=== PATIENT | female | born 1960 | race Asian ===

== ENCOUNTER 2016-04-29 08:08 | Inpatient (IN) | payer OTHER ==
[~2016-04-29] VITALS: Ht 157.5 cm; Wt 65.2 kg
[2016-04-29] MEDS ORDERED: morphine 4 MG/ML VIAL IV STA (08:24)
[2016-04-29] MEDS ORDERED: ASPIRIN 81 MG TAB PO STA (08:24)
[2016-04-29] MEDS ORDERED: ONDANSETRON 4 MG INJ IV STA (08:24)
[2016-04-29] MEDS ORDERED: NITROGLYCERIN 2% 1 GM OINT PKT TD STA (08:24)
--- NOTE | 2016-04-29 08:31 | ERA ---
ER Documentation Chief Complaint Date/Time DATE: 04/29/16 TIME: 08:28 Chief Complaint shortness of breath, chest pain - hx of chest palpitation HPI Patient is a 56-year-old female who reports intermittent chest pain with shortness of breath and nausea over the last week. Her daughter states that they went to [place] emergency department and allegedly were told to come here if she had any further symptoms. She reports increased chest pain this morning upon awakening with shortness of breath and nausea so she came here for further evaluation. They do not know at this time what is causing the symptoms. The daughter states that she gets short of breath with ambulating and with talking. This is improved when she is at rest. The chest pain seems to come and go on its own. She has not had any fever, rhinorrhea, sore throat, or otalgia. She has had a dry nonproductive cough. She denies any edema of her extremities. And she is not traveling long distances. Denies any abdominal pain, vomiting, diarrhea, dysuria, hematuria, flank pain or back pain. In the remainder of the systems are negative ROS All systems reviewed and are negative except as per history of present illness. Medications Home Meds Reported Medications Aspirin* (Aspirin*) 325 Mg Tablet, 325 MG PO DAILY, TAB 04/29/16 Losartan Potassium* (Losartan Potassium*) 50 Mg Tablet, 50 MG PO BID, TAB 04/29/16 Allergies Allergies: Coded Allergies: No Known Allergy (Unverified , 04/29/16) PMhx/Soc Medical and Surgical Hx: pt denies Surgical Hx Hx Alcohol Use: No Hx Substance Use: No Smoking Status: Never smoker FmHx Family History: No diabetes Physical Exam Vitals Vital Signs Date Time Temp Pulse Resp B/P Pulse Ox O2 Delivery O2 Flow Rate FiO2 04/29/16 08:33 Nasal Cannula 2 04/29/16 08:13 98.2 85 19 182/80 100 Physical Exam Const: [] Well-developed well-nourished female sitting on the bed no acute distress Head: Atraumatic normocephalic Eyes: Normal Conjunctiva ENT: Normal External Ears, Nose and Mouth. Neck: Full range of motion..~ No meningismus. Resp: Clear to auscultation bilaterally, no tenderness to palpation of the chest wall Cardio: Regular rate and rhythm, no murmurs Abd: Soft, non tender, non distended. Normal bowel sounds no masses, rebound , or guarding Skin: No petechiae or rashes Back: No midline or flank tenderness Ext: No cyanosis, or edema, no calf pain Neur: Awake and alert, GCS of 15, nonfocal, moves all extremities equally Psych: Normal Mood and Affect Result Diagram: 04/29/16 0730 04/29/16 0730 Results 24 hrs Laboratory Tests Test 04/29/16 07:30 Activated Partial Thromboplast Time 31.6Sec Alanine Aminotransferase (ALT/SGPT) 24IU/L Albumin 4.4g/dl Albumin/Globulin Ratio 1.22 Alkaline Phosphatase 76IU/L Anion Gap 18 Aspartate Amino Transf (AST/SGOT) 22IU/L B-Type Natriuretic Peptide 17PG/ML Basophils # 0.010^3/ul Basophils % 0.5% Blood Urea Nitrogen 14mg/dl Calcium Level 10.8mg/dl Carbon Dioxide Level 26mmol/L Chloride Level 104mmol/L Creatinine 0.62mg/dl Direct Bilirubin 0.00mg/dl Eosinophils # 0.110^3/ul Eosinophils % 0.9% Globulin 3.60g/dl Glucose Level 140mg/dl Hematocrit 39.1% Hemoglobin 13.6g/dl INR International Normalized Ratio 0.93 Indirect Bilirubin 0.3mg/dl Lymphocytes # 1.910^3/ul Lymphocytes % 33.5% Mean Corpuscular Hemoglobin 30.6pg Mean Corpuscular Hemoglobin Concent 34.8g/dl Mean Corpuscular Volume 87.9fl Mean Platelet Volume 9.1fl Monocytes # 0.410^3/ul Monocytes % 7.2% Neutrophils # 3.210^3/ul Neutrophils % 57.7% Nucleated Red Blood Cells # 0.010^3/ul Nucleated Red Blood Cells % 0.0/100WBC Platelet Count 27769^3/UL Potassium Level 3.8mmol/L Prothrombin Time 12.5Sec Prothrombin Time Ratio 1.0 Red Blood Count 4.4510^6/ul Red Cell Distribution Width 12.7% Sodium Level 144mmol/L Total Bilirubin 0.3mg/dl Total Protein 8.0g/dl Troponin I < 0.012ng/ml White Blood Count 5.610^3/ul Current Medications Medications (Trade) Dose Ordered Sig/Argenis Route PRN Reason Start Time Stop Time Status Last Admin Dose Admin Aspirin (Aspirin) 162 mg ONCE STAT PO 04/29/16 08:24 04/29/16 08:26 DC 04/29/16 08:44 Nitroglycerin (Nitroglycerin 2% Oint) 1 inch ONCE STAT TD 04/29/16 08:24 04/29/16 08:26 DC 04/29/16 08:45 Morphine Sulfate (morphine) 4 mg ONCE STAT IV 04/29/16 08:24 04/29/16 08:26 DC 04/29/16 08:45 Ondansetron HCl (Zofran Inj) 4 mg ONCE STAT IV 04/29/16 08:24 04/29/16 08:27 DC 04/29/16 08:44 Procedures/MDM Differential includes but is not limited to new onset angina, congestive heart failure, chest pain of unclear etiology, dyspnea, bronchitis, pneumonia EKG: Rate/Rhythm: Normal Sinus Rhythm at 70 bpm without any evidence for acute ischemia, no old EKG available for comparison QRS, ST, T-waves: No changes consistent w/ acute ischemia Impression: No evidence of ischemia or arrhythmia Chest x-ray reveals calcification of the thoracic aorta consistent with atherosclerosis, no acute cardio pulmonary process noted per the radiologist 0 9:29 AM: At this time patient's chest pain is improved. Her blood pressure is also improved. Her cardiac enzymes are negative. Her history however is concerning for possible new onset angina. Given the fact that her pain was worse this morning I feel is most prudent to admit her to the hospital for further evaluation. Departure Diagnosis: Primary Impression: Chest pain Qualified Code: R07.2 - Precordial pain Additional Impressions: Exertional shortness of breath Hypertension Qualified Code: I10 - Essential hypertension Condition: AMBER [place] Apr 29, 2016 08:31
[2016-04-29 08:36] LABS: ADD SCAN DIFF NO
[2016-04-29 08:39] LABS: BASOPHILS % 0.5 % (0.0-2.0); EOSINOPHILS # 0.1 10^3/ul (0.0-0.5); EOSINOPHILS % 0.9 % (0.0-7.0); HEMATOCRIT 39.1 % (37.0-47.0); HEMOGLOBIN 13.6 g/dl (12.0-16.0); LYMPHOCYTES # 1.9 10^3/ul (0.8-2.9); LYMPHOCYTES % 33.5 % (15.0-51.0); MEAN CORPUSCULAR HEMOGLOBIN 30.6 pg (29.0-33.0); MEAN CORPUSCULAR HGB CONC 34.8 g/dl (32.0-37.0); MEAN CORPUSCULAR VOLUME 87.9 fl (82.0-101.0); MEAN PLATELET VOLUME 9.1 fl (7.4-10.4); MONOCYTE # 0.4 10^3/ul (0.3-0.9); MONOCYTES % 7.2 % (0.0-11.0); NEUTROPHIL # 3.2 10^3/ul (1.6-7.5); NEUTROPHILS % 57.7 % (39.0-77.0); PLATELET COUNT 278 10^3/UL (140-415); RED BLOOD COUNT 4.45 10^6/ul (4.20-5.40); RED CELL DISTRIBUTION WIDTH 12.7 % (11.5-14.5); WHITE BLOOD COUNT 5.6 10^3/ul (4.8-10.8)
[2016-04-29 08:46] LABS: ALBUMIN 4.4 g/dl (3.3-4.9); CHLORIDE 104 mmol/L (97-110); POTASSIUM 3.8 mmol/L (3.5-5.1); SODIUM 144 mmol/L (135-144)
[2016-04-29 08:48] LABS: CREATININE 0.62 mg/dl (0.44-1.00)
[2016-04-29 08:49] LABS: ALANINE AMINOTRANSFERASE 24 IU/L (13-69); ALBUMIN/GLOBULIN RATIO 1.22; ALKALINE PHOSPHATASE 76 IU/L (42-121); ANION GAP 18 (8-16); ASPARTATE AMINO TRANSFERASE 22 IU/L (15-46); BILIRUBIN,INDIRECT 0.3 mg/dl (0-1.1); BILIRUBIN,TOTAL 0.3 mg/dl (0.2-1.3); BLOOD UREA NITROGEN 14 mg/dl (7-20); CALCIUM 10.8 mg/dl (8.4-10.2); CARBON DIOXIDE 26 mmol/L (21-31); GLUCOSE 140 mg/dl (70-220)
[2016-04-29 08:58] LABS: B-TYPE NATRIURETIC PEPTIDE 17 PG/ML (0-125)
[2016-04-29 09:01] LABS: INR 0.93; PARTIAL THROMBOPLASTIN TIME 31.6 Sec (25.0-35.0); PROTIME 12.5 Sec (12.2-14.2)
--- NOTE | 2016-04-29 09:03 | RADRPT ---
PROCEDURE: XR Chest. CLINICAL INDICATION: Chest pain TECHNIQUE: Chest AP portable COMPARISON: None available FINDINGS: The mediastinal structures are unremarkable. There is calcification of the thoracic aorta (consiste nt with atherosclerosis). The heart is normal in size and configuration. The pulmonary vascularity is normal. The lung rooney are unremarkable. No consolidation is identified. The pleural spaces are unremarkable. The osseous structures are unremarkable. IMPRESSION: Calcification of the thoracic aorta (consistent with atherosclerosis). No evidence for active cardiopulmonary disease. RPTAT: HGDB .Nader Boggs MD, Date Time Electronically viewed and signed by .Nader Boggs MD, on 04/29/2016 09:02 .B/
[2016-04-29 09:04] LABS: TROPONIN-I < 0.012 ng/ml (0.00-0.12)
[2016-04-29] MEDS ORDERED: ASPI325T4 PO (09:26)
[2016-04-29] MEDS ORDERED: LOSA50TA6 PO (09:26)
[2016-04-29] MEDS ORDERED: VER40 PO (09:30)
[2016-04-29] MEDS ORDERED: ACETAMINOPHEN 325 MG TAB PO PRN (10:00)
[2016-04-29] MEDS ORDERED: ONDANSETRON 4 MG INJ IV PRN (10:00)
[2016-04-29 13:14] VITALS: BP 147/81; RESP 22
[2016-04-29 13:17] VITALS: PULSE 51
[2016-04-29 14:10] VITALS: Ht 157.5 cm; Wt 65.2 kg
[2016-04-29] MEDS ORDERED: morphine 2 MG INJ IV PRN (15:00)
[2016-04-29] MEDS ORDERED: NITROGLYCERIN (SL) 0.4 MG TAB SL PRN (15:00)
[2016-04-29 15:53] LABS: CREATINE KINASE < 20 IU/L (23-200)
[2016-04-29 16:00] VITALS: PULSE 53
[2016-04-29 16:13] LABS: CK-MB < 0.22 ng/ml (0.0-2.4); TROPONIN-I < 0.012 ng/ml (0.00-0.12)
[2016-04-29 16:36] VITALS: BP 123/80; RESP 19
--- NOTE | 2016-04-29 17:23 | CONS ---
Date/Time of Note Date/Time of Note DATE: 04/29/16 TIME: 17:18 Assessment/Plan Assessment/Plan Additional Assessment/Plan Chest pain Shortness of breath Hypertension -Patient with intermittent symptoms going on for a number of months, sometimes associated with activity, sometimes not. Serial cardiac enzymes have remained negative, ECG without any significant ischemic abnormalities. Will check echocardiogram, would consider nuclear cardiac perfusion workup. Continue on telemetry monitoring. Consultation Date/Type/Reason Admit Date/Time Apr 29, 2016 at 09:42 Type of Consultation: cv Reason for Consultation Chest pain and shortness of breath Hx of Present Illness This is a 56-year-old female with past medical history of hypertension who presents with worsening shortness of breath and chest pain. Symptoms have been going on for many months. She recently moved here from the [facility] 3 months ago. At times, patient with exertional shortness of breath which improves at rest. At times shortness of breath in the morning with waking up and also with speaking. She also has frequent palpitations which comes and goes with and without activity. At times she gets lightheaded. She also complains of intermittent chest discomfort. Chest pain is not always associated with activity. It comes and goes throughout the day. This morning, patient with worsening symptoms so she came to the emergency room for evaluation and care. Patient states she has gone to other hospitals for further workup but secondary to insurance reasons, was sent to our facility. She currently denies any chest pain, shortness of breath. 12 point review of systems was performed with all pertinent positives and negatives mentioned above and all else is negative Past Medical History Medical History: hypertension Past Surgical History Past Surgical Hx: no surgical history Family History Significant Family History: no pertinent family hx Social History Alcohol Use: none Smoking Status: Never smoker Drug Use: none Other Social History Patient recently moved here from the [facility] 3 months ago Exam/Review of Systems Vital Signs Vitals Vital Signs Date Time Temp Pulse Resp B/P Pulse Ox O2 Delivery O2 Flow Rate FiO2 04/29/16 16:36 97.7 55 19 123/80 99 04/29/16 14:10 Nasal Cannula 2.0 Exam No apparent distress, eating dinner in chair, daughter in the room and translating Constitutional: alert, oriented, well developed Head: normocephalic Neck: supple Respiratory: clear to auscultation, normal air movement Cardiovascular: other (S1-S2 heard), regular rate and rhythm Gastrointestinal: bowel sounds, non-tender, other (No guarding), soft Extremities: other (No edema or cyanosis) Results Result Diagram: 04/29/16 0730 04/29/16 0730 Results 24 hrs Laboratory Tests Test 04/29/16 07:30 04/29/16 15:05 Activated Partial Thromboplast Time 31.6 Alanine Aminotransferase (ALT/SGPT) 24 Albumin 4.4 Albumin/Globulin Ratio 1.22 Alkaline Phosphatase 76 Anion Gap 18 H Aspartate Amino Transf (AST/SGOT) 22 B-Type Natriuretic Peptide 17 Basophils # 0.0 Basophils % 0.5 Blood Urea Nitrogen 14 Calcium Level 10.8 H Carbon Dioxide Level 26 Chloride Level 104 Creatinine 0.62 Direct Bilirubin 0.00 Eosinophils # 0.1 Eosinophils % 0.9 Globulin 3.60 H Glucose Level 140 Hematocrit 39.1 Hemoglobin 13.6 INR International Normalized Ratio 0.93 Indirect Bilirubin 0.3 Lymphocytes # 1.9 Lymphocytes % 33.5 Mean Corpuscular Hemoglobin 30.6 Mean Corpuscular Hemoglobin Concent 34.8 Mean Corpuscular Volume 87.9 Mean Platelet Volume 9.1 Monocytes # 0.4 Monocytes % 7.2 Neutrophils # 3.2 Neutrophils % 57.7 Nucleated Red Blood Cells # 0.0 Nucleated Red Blood Cells % 0.0 Platelet Count 278 Potassium Level 3.8 Prothrombin Time 12.5 Prothrombin Time Ratio 1.0 Red Blood Count 4.45 Red Cell Distribution Width 12.7 Sodium Level 144 Total Bilirubin 0.3 Total Protein 8.0 Troponin I < 0.012 < 0.012 White Blood Count 5.6 Creatine Kinase < 20 L Creatine Kinase Index Creatinine Kinase MB (Mass) < 0.22 Medications Medications Current Medications Aspirin (Aspirin) 81 mg DAILY PO ; Start 04/30/16 at 09:00 Nitroglycerin (Nitroglycerin (Sl Tab) 0.4 Mg) 1 tab Q5M PRN SL ANGINA; Start at 15:00 Morphine Sulfate (morphine) 2 mg Q4H PRN IV PAIN; Start 04/29/16 at 15:00 Procedures Procedures ECG demonstrates sinus rhythm, normal QRS duration, no significant ischemic STT wave abnormalities Olvin Mccloud DO Apr 29, 2016 17:23
[2016-04-29 20:00] VITALS: BP 149/72; PULSE 59
[2016-04-29 20:21] VITALS: PULSE 58
[2016-04-29 21:03] LABS: CREATINE KINASE < 20 IU/L (23-200)
[2016-04-29 21:25] LABS: CK-MB < 0.22 ng/ml (0.0-2.4); TROPONIN-I < 0.012 ng/ml (0.00-0.12)
--- NOTE | 2016-04-29 22:22 | QN ---
Documentation Comment [id number] VICTORIA MAHER MD Apr 29, 2016 22:22
[2016-04-29 22:54] LABS: CHOL/HDL RATIO 7.5 RATIO
[2016-04-30] VITALS (11 sets, daily range): BP systolic 118–147; BP diastolic 68–86; PULSE 50–69; RESP 16–20
--- NOTE | 2016-04-30 07:18 | HP ---
DATE OF ADMISSION: 04/29/2016 HISTORY OF PRESENT ILLNESS: The patient with a history of hypertension. Presented with complaints of chest pain and short of breath, and is being admitted for further management. The patient's blood pressure in the ER 123/80 _ and the patient's . The patient's troponin is negative. Calcium 10.8 and sodium 144. The patient had a chest x-ray shows thoracic aorta. PAST MEDICAL HISTORY: Hypertension. ALLERGIES: NEGATIVE. FAMILY HISTORY: Noncontributory. SOCIAL HISTORY: Negative. MEDICATIONS AT HOME: 1. Aspirin. 2. Losartan. 3. Verapamil. REVIEW OF SYSTEMS: HEENT: Unremarkable. RESPIRATORY: Unremarkable. CARDIOVASCULAR SYSTEM: As mentioned. ABDOMEN: Unremarkable. EXTREMITIES: Unremarkable. . PHYSICAL EXAMINATION: GENERAL: The patient is awake. VITAL SIGNS: Stable. HEENT: Head is atraumatic, normocephalic. Pupils appear equal. react.. NECK: Supple. No LUNGS: Clear. CARDIOVASCULAR: S1, S2 is normal. ABDOMEN: Soft, nontender, bowel sounds with no palpable mass or hepatosplenomegaly. EXTREMITIES: No cyanosis, clubbing, or edema. NEUROLOGIC: The patient is awake, alert and no focal deficit. LABORATORY DATA: As mentioned above. IMPRESSION: 1. Acute coronary syndrome. 2. Hypertension with ischemic heart disease, database. PLAN: 1. Review EKG. 2. Cardiology consultation. 3. Will continue home medications. 4. Troponin will be sent. 5. Lipid panel . Dictated By: VICTORIA MAHER MD BS/NTS Conf#: [id number] DID#: [id number]
[2016-04-30] MEDS: ASPIRIN 81 MG TAB PO SCH (08:04)
[2016-04-30] MEDS ORDERED: REGADENOSON 0.4 MG/5 ML SYG ONE (10:01)
--- NOTE | 2016-04-30 12:08 | CONS ---
Date/Time of Note Date/Time of Note DATE: 04/30/16 TIME: 12:07 Assessment/Plan Assessment/Plan Additional Assessment/Plan Chest pain Shortness of breath Hypertension -Patient feeling better today. Serial cardiac enzymes remain negative. Plan for echocardiogram and nuclear stress test today. Blood pressure on the higher end, would start lisinopril. Consultation Date/Type/Reason Admit Date/Time Apr 29, 2016 at 09:42 Initial Consult Date Type of Consultation: cv 24 HR Interval Summary Free Text/Dictation Patient feeling better today. Denies shortness of breath, chest pain Exam/Review of Systems Vital Signs Vitals Vital Signs Date Time Temp Pulse Resp B/P Pulse Ox O2 Delivery O2 Flow Rate FiO2 04/30/16 12:02 69 04/30/16 11:54 97.4 19 136/80 99 04/30/16 08:00 Nasal Cannula 2.0 Intake and Output 04/29/16 04/29/16 04/30/16 15:00 23:00 07:00 Intake Total 200 ml 0 ml Balance 200 ml 0 ml Exam No apparent distress Constitutional: alert, oriented Head: normocephalic Neck: supple Respiratory: clear to auscultation, normal air movement Cardiovascular: other (S1-S2 heard), regular rate and rhythm Gastrointestinal: bowel sounds, non-tender, other (No guarding), soft Extremities: other (No edema or cyanosis) Results Result Diagram: 04/29/16 0730 04/29/16 0730 Results 24 hrs Laboratory Tests Test 04/29/16 15:05 04/29/16 20:25 Creatine Kinase < 20 L < 20 L Creatine Kinase Index Creatinine Kinase MB (Mass) < 0.22 < 0.22 Troponin I < 0.012 < 0.012 Triglycerides Level 186 H Cholesterol Level 243 H LDL Cholesterol, Calculated 174 HDL Cholesterol 32 L Cholesterol/HDL Ratio 7.5 Medications Medications Current Medications Aspirin (Aspirin) 81 mg DAILY PO Last administered on 04/30/16 08:04; Admin Dose 81 MG; Start 04/30/16 at 09:00 Nitroglycerin (Nitroglycerin (Sl Tab) 0.4 Mg) 1 tab Q5M PRN SL ANGINA; Start at 15:00 Morphine Sulfate (morphine) 2 mg Q4H PRN IV PAIN Last administered on 22:52; Admin Dose 2 MG; Start 04/29/16 at 15:00 Olvin Mccloud DO Apr 30, 2016 12:08
--- NOTE | 2016-04-30 13:01 | RADRPT ---
PROCEDURE: Lexiscan myocardial perfusion study CLINICAL INDICATION: 56 -year-old patient complaining of chest pain. TECHNIQUE: Lexiscan 0.4 mg intravenously separate acquisition gated myocardial perfusion SPECT usi ng Tc 99m Myoview 31.3 mCi intravenously at stress and Tc-99m Myoview, 10.0 mCi intravenously at res t was performed using the rest/stress sequence. Poststress Myoview SPECT images were obtained in th e supine position. COMPARISON: No prior studies. FINDINGS: Perfusion images reveal no evidence of perfusion defects. Lexiscan post stress gated SPECT images demonstrate no wall motion abnormalities. IMPRESSION: 1. No evidence of perfusion defects. 2. No wall motion abnormalities. 3. The left ventricle ejection fraction at stress is 70%. A call report was made to Dr. Mccloud at 12:59 p.m. on April 30, 2016. RPTAT: HH .Alessandra Guzman MD, Date Time Electronically viewed and signed by .Alessandra Guzman MD, on 04/30/2016 13:00 .L/
[2016-04-30] MEDS: LISINOPRIL 5 MG TAB PO SCH (13:55)
--- NOTE | 2016-04-30 17:31 | RADRPT ---
Echocardiogram Report Patient Name: CARLOS PHOENIX Gender: Female Date: 1960 Study Date: 30-Apr-2016 Straightening Machine Operator: Lamont Arreguin [facility] Location: 5539 Ref. Physician: OLVIN MCCLOUD Quality: Good Procedures: Transthoracic echocardiogram with complete 2D, M-Mode, and doppler examination. Indications: Chest Pain. Shortness of breath. 2D/M Mode Doppler Measurement Value Normal Ranges Measurement Value Normal Ranges LVIDd 2D 3.8 3.5 - 5.6 cm AV Peak Jr 1.1 m/sec LVIDs 2D 2.4 2.1 - 4.1 cm AV Peak PG 4.5 mmHg LVPWd 2D 0.9 0.6 - 1.1 cm LVOT Peak Jr 0.9 m/sec IVSd 2D 1.1 0.6 - 1.1 cm LVOT Peak PG 3.2 mmHg AoR Diam 2D 2.7 2.0 - 3.7 cm MV E Peak Jr 0.7 m/sec EDV 2D 62.1 cm3 MV A Peak Jr 0.8 m/sec ESV 2D 14.1 cm3 MV E/A 0.9 LA Dimen 2D 3.0 2.3 - 4.0 cm MV Decel Time 146 msec MV Decel [place] 5 MV E/A 0.9 Findings Left Ventricle: Normal left ventricular systolic function. Normal left ventricular cavity size. Normal left ventricular wall thickness. Ejection fraction is visually estimated at 65 %. Tissue Doppler/Mitral Doppler indices are consistent with impaired relaxation (Stage I diastolic dysfunction). Right Ventricle: Normal right ventricular size. Normal right ventricular systolic function. Left Atrium: The left atrium is normal in size. Right Atrium: The right atrium is normal in size. Mitral Valve: Normal appearance and function of the mitral valve with trace physiologic regurgitation. Aortic Valve: Normal appearance of the aortic valve. No significant aortic stenosis or insufficiency. Tricuspid Valve: Normal appearance and function of the tricuspid valve with trace physiologic regurgitation. Pulmonic Valve: Normal pulmonic valve appearance. Pericardium: Normal pericardium with no significant pericardial effusion. Aorta: Normal aortic root. IVC: Normal size and normal respiratory collapse consistent with normal right atrial pressure. Conclusions 1.Normal left ventricular systolic function. Normal left ventricular cavity size. Normal left ventricular wall thickness. Ejection fraction is visually estimated at 65 %. Tissue Doppler/Mitral Doppler indices are consistent with impaired relaxation (Stage I diastolic dysfunction). 2.Normal right ventricular size. Normal right ventricular systolic function. 3.The left atrium is normal in size. 4.The right atrium is normal in size. 5.No significant valvular stenosis or regurgitation seen. 6.Normal pericardium with no significant pericardial effusion. Electronically Signed By: Olvin Mccloud 30-Apr-2016 17:30:33 -0700 Patient Name: CARLOS PHOENIX Study Date: 30-Apr-2016 [id number]
--- NOTE | 2016-04-30 23:51 | PN ---
Date/Time of Note Date/Time of Note DATE: 04/30/16 TIME: 23:51 Assessment/Plan VTE Prophylaxis VTE Prophylaxis Intervention: other Lines/Catheters [facility] Saline Lock Urinary Cath still in place: No Assessment/Plan Chief Complaint/Hosp Course mi r/o dyslipedemia plan per cardio Problems: Subjective 24 Hr Interval Summary Cardiovascular: no complaints Gastrointestinal: no complaints Exam/Review of Systems Vital Signs Vitals Vital Signs Date Time Temp Pulse Resp B/P Pulse Ox O2 Delivery O2 Flow Rate FiO2 04/30/16 21:30 Nasal Cannula 2.0 04/30/16 20:40 66 04/30/16 19:52 98.1 16 126/86 100 Intake and Output 04/29/16 04/29/16 04/30/16 15:00 23:00 07:00 Intake Total 200 ml 0 ml Balance 200 ml 0 ml Exam Neck: supple Respiratory: clear to auscultation Cardiovascular: regular rate and rhythm Gastrointestinal: soft Results Result Diagram: 04/29/16 0730 04/29/16 0730 Medications Medications Current Medications Aspirin (Aspirin) 81 mg DAILY PO Last administered on 04/30/16 08:04; Admin Dose 81 MG; Start 04/30/16 at 09:00 Nitroglycerin (Nitroglycerin (Sl Tab) 0.4 Mg) 1 tab Q5M PRN SL ANGINA; Start at 15:00 Morphine Sulfate (morphine) 2 mg Q4H PRN IV PAIN Last administered on 22:52; Admin Dose 2 MG; Start 04/29/16 at 15:00 Lisinopril (Zestril) 5 mg DAILY PO Last administered on 04/30/16 13:55; Admin Dose 5 MG; Start 04/30/16 at 12:30 VICTORIA MAHER MD Apr 30, 2016 23:51
[2016-05-01] VITALS (8 sets, daily range): BP systolic 106–126; BP diastolic 60–75; PULSE 49–60; RESP 16–20
[2016-05-01] MEDS: ASPIRIN 81 MG TAB PO SCH (08:57)
[2016-05-01] MEDS: LISINOPRIL 5 MG TAB PO SCH (09:00)
--- NOTE | 2016-05-01 12:34 | PDOCDIS ---
Discharge Instructions CONDITION Patient Condition: Good HOME CARE INSTRUCTIONS: Diet Instructions: 2gm NaSpecial Diet: Cardiac diet ACTIVITY: Activity Restrictions: Slowly Increase Activity FOLLOW UP/APPOINTMENTS Appointments f/u own pcp [address] camargo 1 wk VICTORIA MAHER MD May 01, 2016 12:33
[2016-05-01] MEDS ORDERED: ATOR40TA68 PO (12:38)
[2016-05-01] MEDS ORDERED: NIT4 SL (12:38)
--- NOTE | 2016-05-01 13:53 | CARRPT ---
DATE OF PROCEDURE: LEXISCAN NUCLEAR STRESS TEST PATIENT HISTORY: This 56-year-old female who presents with recurrent dyspnea on exertion and chest pain. Baseline ECG demonstrates sinus bradycardia at 57 beats per minute, no significant ischemic ST-T wav e abnormalities. Baseline heart rate was 57. Baseline blood pressure was 188/88. Lexiscan was administered as per protocol. SYMPTOMS: Shortness of breath which resolved. Peak heart rate was 96. Peak blood pressure was 188/96. ARRHYTHMIAS: None. ECG interpretation was nonischemic. The nuclear portion will be interpreted by our radiology colleagues. Dictated By: SUGEY GUO/AYNI Conf#: [id number] DID#: [id number]
[2016-05-01] MEDS ORDERED: ATORVASTATIN 40 MG TAB PO SCH (21:00)
== END 2016-05-01 14:00 | disposition home or self-care (01) | DRG 313 ==
LOC: E/R 08:08 → MS4 09:42
PROVIDERS: ADMIT Internal Medicine Nephrology; ATTEND Internal Medicine Nephrology
DX: R07.9 Chest pain, unspecified (principal); I10 Essential (primary) hypertension; E78.5 Hyperlipidemia, unspecified; R06.02 Shortness of breath; Z79.82 Long term (current) use of aspirin
CPT/HCPCS: 36415; 71010; 78452; 80053; 80061; 82550; 82553; 83880; 84484; 85025; 85610; 85730; 93005; 93017; 93306; 96374; 96375; A9500; A9505; J2270; J2405; J2785

== ENCOUNTER 2017-01-03 22:14 | Emergency (ER) | payer OTHER ==
[~2017-01-03] VITALS: Ht 157.5 cm; Wt 66.3 kg
[~2017-01-03 22:14] MED LIST: ASPI325T4 PO; ATOR40TA68 PO; LOSA50TA6 PO; NIT4 SL; VER40 PO
[2017-01-03 22:31] VITALS: Ht 157.5 cm; Wt 66.3 kg
--- NOTE | 2017-01-03 22:51 | ERD ---
ER Documentation Chief Complaint Chief Complaint palpitations this AM, takes Verapamil HPI 56-year-old woman presents with 3-4 days of intermittent palpitations. She denies chest pain or chest discomfort but has palpitations intermittently lasting for most of the day, her daughter who is at the bedside states she has had these symptoms multiple times in the past but they both deny history of atrial fibrillation or atrial flutter. Patient denies shortness of breath, no calf or leg swelling, no fevers or chills, no cough, no headache or blurry vision. Patient states she has been using her other medications as prescribed. ROS All systems reviewed and are negative except as per history of present illness. Medications Home Meds Active Scripts Atorvastatin* (Atorvastatin*) 40 Mg Tablet, 40 MG PO HS for 28 Days, TAB Prov:VICTORIA MAHER MD 05/01/16 Nitroglycerin* (Nitrostat*) 0.4 Mg Tab.subl, 1 TAB SL Q5M Y for ANGINA for 14 Days Prov:VICTORIA MAHER MD 05/01/16 Reported Medications Verapamil Hcl* (Isoptin*) 40 Mg Tab, 40 MG PO Q6 Y for PALPITATION, TAB 04/29/16 Aspirin* (Aspirin*) 325 Mg Tablet, 325 MG PO DAILY, TAB 04/29/16 Losartan Potassium* (Losartan Potassium*) 50 Mg Tablet, 50 MG PO BID, TAB 04/29/16 Allergies Allergies: Coded Allergies: No Known Allergy (Unverified , 04/29/16) PMhx/Soc Hypertension, dyslipidemia, CAD History of Surgery: Yes Anesthesia Reaction: No Hx Neurological Disorder: No Hx Respiratory Disorders: No Hx Cardiac Disorders: Yes (HTN) Hx Psychiatric Problems: No Hx Miscellaneous Medical Probl: No Hx Alcohol Use: No Hx Substance Use: No Hx Tobacco Use: No FmHx Family History: No diabetes Physical Exam Vitals Vital Signs Date Time Temp Pulse Resp B/P Pulse Ox O2 Delivery O2 Flow Rate FiO2 01/04/17 00:45 98.1 69 18 114/81 99 Room Air 01/03/17 22:45 69 18 169/102 99 Room Air 01/03/17 22:31 98.0 41 22 95 Physical Exam GENERAL: Well-developed, well-nourished, well-hydrated, in no apparent distress , looks nontoxic in appearance HEENT: Moist mucous membranes, pink conjunctiva, no cervical spine tenderness or step-off deformities, no goiter, no jaundice or icterus, extraocular movements intact without pain. No submandibular induration, and no pharyngeal erythema NEURO: Alert and oriented 3, cranial nerves II through XII intact bilaterally, pupils equal round reactive to light, no focal deficits or facial asymmetry, sensation intact distally Strength 5/5 in upper and lower extremities bilaterally CARDIAC: Tachycardic and regular, no murmurs rubs or gallops LUNGS: Clear bilaterally no wheezing crackles or stridor ABDOMEN: Soft nontender, no guarding, no rigidity, no rebound, no psoas sign no obturator sign. Normoactive bowel sounds SKIN: Warm and dry to touch, no abrasions, contusions, or hematomas, no lacerations, no ecchymosis, no target lesions, and without ulcers EXTREMITIES: No clubbing cyanosis or edema, calves are bilaterally symmetrical, no Homans sign, no popliteal cord sign. Distal pulses equal and bilateral PSYCH: Normal affect without agitation or irritability Result Diagram: 01/03/17225101/03/172251 Results 24 hrs Laboratory Tests Test 01/03/17 22:52 01/03/17 23:30 White Blood Count 6.310^3/ul Red Blood Count 4.4610^6/ul Hemoglobin 13.5g/dl Hematocrit 38.4% Mean Corpuscular Volume 86.1fl Mean Corpuscular Hemoglobin 30.3pg Mean Corpuscular Hemoglobin Concent 35.2g/dl Red Cell Distribution Width 12.6% Platelet Count 32795^3/UL Mean Platelet Volume 9.8fl Neutrophils % 45.8% Lymphocytes % 44.4% Monocytes % 7.6% Eosinophils % 1.4% Basophils % 0.5% Nucleated Red Blood Cells % 0.0/100WBC Neutrophils # 2.910^3/ul Lymphocytes # 2.810^3/ul Monocytes # 0.510^3/ul Eosinophils # 0.110^3/ul Basophils # 0.010^3/ul Nucleated Red Blood Cells # 0.010^3/ul Sodium Level 145mmol/L Potassium Level 3.4mmol/L Chloride Level 107mmol/L Carbon Dioxide Level 26mmol/L Anion Gap 15 Blood Urea Nitrogen 14mg/dl Creatinine 0.71mg/dl Glucose Level 182mg/dl Calcium Level 10.8mg/dl Total Bilirubin 0.2mg/dl Direct Bilirubin 0.00mg/dl Indirect Bilirubin 0.2mg/dl Aspartate Amino Transf (AST/SGOT) 20IU/L Alanine Aminotransferase (ALT/SGPT) 34IU/L Alkaline Phosphatase 88IU/L Troponin I < 0.012ng/ml Total Protein 7.8g/dl Albumin 4.1g/dl Globulin 3.70g/dl Albumin/Globulin Ratio 1.10 Lipase 448U/L Urine Color STRAW Urine Clarity CLEAR Urine pH 6.0 Urine Specific [place] 1.012 Urine Ketones NEGATIVEmg/dL Urine Nitrite NEGATIVEmg/dL Urine Bilirubin NEGATIVEmg/dL Urine Urobilinogen NEGATIVEmg/dL Urine Leukocyte Esterase NEGATIVELeu/ul Urine Microscopic RBC 1/HPF Urine Microscopic WBC 3/HPF Urine Squamous Epithelial Cells FEW/HPF Urine Bacteria FEW/HPF Urine Hemoglobin 1+mg/dL Urine Glucose 1+mg/dL Urine Total Protein NEGATIVEmg/dl Current Medications Medications (Trade) Dose Ordered Sig/Argenis Route PRN Reason Start Time Stop Time Status Last Admin Dose Admin Lactated Ringer's (Lr) 1,000 ml @ 1,000 mls/hr Q1H ONCE IV 01/03/17 23:00 01/03/17 23:59 DC 01/03/17 23:21 Diltiazem HCl (Cardizem Iv) 20 mg ONCE ONCE IV 01/03/17 23:00 01/03/17 23:01 DC Aspirin (Aspirin) 324 mg ONCE ONCE PO 01/03/17 23:00 01/03/17 23:01 DC 01/03/17 23:22 Enalaprilat (Vasotec Iv) 1.25 mg ONCE ONCE IV 01/03/17 23:00 01/03/17 23:01 DC 01/03/17 23:22 Clonidine (Catapres) 0.1 mg ONCE ONCE PO 01/04/17 00:00 01/04/17 00:01 DC 01/03/17 23:51 Clonidine (Catapres) 0.1 mg STK-MED ONCE .ROUTE 01/03/17 23:49 01/03/17 23:50 DC Clonidine (Catapres) 0.1 mg ONCE ONCE PO 01/04/17 00:00 01/04/17 00:01 DC Procedures/MDM IV line was established patient was placed on compliance monitor rhythm strip revealed a narrow complex tachycardia 110 bpm with upright P and T waves. Patient was afebrile EKG performed, read by me revealed an atrial fibrillation with rapid ventricular rate at 103 bpm, normal axis, narrow QRS complex, no concerning ST elevations or depressions noted. For hypertension I administered enalapril 1.25 mg IV 1. Patient also received lactated Ringer's 1 L IV 1. EKG performed, read by me: 71 bpm, normal sinus rhythm, normal axis, no acute ST segment changes, narrow QRS complex, with good R-wave progression in precordial leads. One AP view of the chest performed, read by me reveals no acute infiltrates, normal mediastinum, sharp costophrenic and cardiac borders, no air under the diaphragm. Otherwise unremarkable chest x-ray. CBC and electrolytes were unremarkable, liver function tests were normal, troponin was negative. Urine analysis was negative for infection. Shortly after medical intervention patient's palpitations resolved and a repeat EKG revealed a normal sinus rhythm. I recommended admission for inpatient management for new onset atrial fibrillation with rapid ventricular rate. Patient and her daughter who is at the bedside discussed this issue at length and decided they prefer outpatient management. I did discuss the risks associated with outpatient management and discharge today, I again recommended inpatient management for expedited cardiology consultation and continued telemetry monitoring. Patient refused admission. I spoke to the patient's health insurance directed on-call physician regarding her presentation and symptomatology, and recommended he assign the patient to a sales and training specialist and approve expedited outpatient cardiology referral. The on-call physician agreed and obtained the patient's relevant information and assured me that he would follow-up with the patient and refer to sales and training specialist for expedited outpatient management. Differential diagnoses considered, included but not limited to acute coronary syndrome, pulmonary embolism, aortic dissection, abdominal aortic aneurysm, sepsis, stroke, meningitis, encephalitis, pneumonia, appendicitis, cholecystitis , bowel obstruction, pyelonephritis, nephrolithiasis, cystitis, as well as metabolic, hematologic, and electrolyte abnormalities. As well as abscess, cellulitis, fractures, and dislocations. Patient feels much better at this time, and vital signs are normal, symptoms have improved. I did give strict instructions to return to the ED if symptoms continue or worsen, patient will otherwise follow-up with primary care physician. Patient understood instructions and agreed to plan. Disclaimer: Inadvertent spelling and grammatical errors are likely due to EHR/ dictation software use and do not reflect on the overall quality of patient care. Also, please note that the electronic time recorded on this note does not necessarily reflect the actual time of the patient encounter. Departure Diagnosis: Primary Impression: Palpitations Additional Impressions: Atrial fibrillation with RVR Hypertension Hypertension type: essential hypertension Qualified Code: I10 - Essential hypertension Condition: Good ESTEBAN ORNELAS MD Jan 03, 2017 22:51
[2017-01-03] MEDS ORDERED: ASPIRIN 81 MG TAB PO ONE (23:00)
[2017-01-03] MEDS ORDERED: LACTATED RINGER'S 1,000 ML IV ONE (23:00)
[2017-01-03] MEDS ORDERED: DILTIAZEM 25 MG INJ IV ONE (23:00)
[2017-01-03] MEDS ORDERED: ENALAPRILAT 1.25 MG INJ IV ONE (23:00)
--- NOTE | 2017-01-03 23:12 | RADRPT ---
PROCEDURE: XR Chest. CLINICAL INDICATION: Abdominal Pain TECHNIQUE: Single frontal view of the chest was obtained COMPARISON: Chest x-ray 04/29/2016 FINDINGS: The cardiomediastinal silhouette is within normal limits. There are atherosclerotic calcifications o f the aorta. No pneumothorax, pleural effusion, or focal consolidation is identified. Mild linear op acities at the left lung base are compatible with mild left basilar atelectasis. There is no evidenc e of pulmonary vascular congestion. There are degenerative changes of the visualized spine. IMPRESSION: 1. No evidence of an acute cardiopulmonary process. 2. Mild left basilar linear atelectasis. 3. Thoracic aortic atherosclerotic disease. RPTAT: [facility] Physician Anastacia Date Time Electronically viewed and signed by Leeanna Wang Physician on 01/03/2017 23:12 /
[2017-01-03 23:26] LABS: BASOPHILS % 0.5 % (0.0-2.0); EOSINOPHILS # 0.1 10^3/ul (0.0-0.5); EOSINOPHILS % 1.4 % (0.0-7.0); HEMATOCRIT 38.4 % (37.0-47.0); HEMOGLOBIN 13.5 g/dl (12.0-16.0); LYMPHOCYTES # 2.8 10^3/ul (0.8-2.9); LYMPHOCYTES % 44.4 % (15.0-51.0); MEAN CORPUSCULAR HEMOGLOBIN 30.3 pg (29.0-33.0); MEAN CORPUSCULAR HGB CONC 35.2 g/dl (32.0-37.0); MEAN CORPUSCULAR VOLUME 86.1 fl (82.0-101.0); MEAN PLATELET VOLUME 9.8 fl (7.4-10.4); MONOCYTE # 0.5 10^3/ul (0.3-0.9); MONOCYTES % 7.6 % (0.0-11.0); NEUTROPHIL # 2.9 10^3/ul (1.6-7.5); NEUTROPHILS % 45.8 % (39.0-77.0); PLATELET COUNT 248 10^3/UL (140-415); RED BLOOD COUNT 4.46 10^6/ul (4.20-5.40); RED CELL DISTRIBUTION WIDTH 12.6 % (11.5-14.5); WHITE BLOOD COUNT 6.3 10^3/ul (4.8-10.8)
[2017-01-03 23:44] LABS: ALANINE AMINOTRANSFERASE 34 IU/L (13-69); ALBUMIN 4.1 g/dl (3.3-4.9); ALKALINE PHOSPHATASE 88 IU/L (42-121); ANION GAP 15 (8-16); ASPARTATE AMINO TRANSFERASE 20 IU/L (15-46); BILIRUBIN,INDIRECT 0.2 mg/dl (0-1.1); BILIRUBIN,TOTAL 0.2 mg/dl (0.2-1.3); BLOOD UREA NITROGEN 14 mg/dl (7-20); CALCIUM 10.8 mg/dl (8.4-10.2); CARBON DIOXIDE 26 mmol/L (21-31); CHLORIDE 107 mmol/L (97-110); CREATININE 0.71 mg/dl (0.44-1.00); GLUCOSE 182 mg/dl (70-220); POTASSIUM 3.4 mmol/L (3.5-5.1); SODIUM 145 mmol/L (135-144); TOTAL PROTEIN 7.8 g/dl (6.1-8.1)
[2017-01-03 23:47] LABS: ADD UMIC YES; UR ASCORBIC ACID NEGATIVE (NEGATIVE); UR BACTERIA FEW /HPF (NONE SEEN); UR BILIRUBIN (Dip) NEGATIVE (NEGATIVE); UR BLOOD (Dip) 1+ mg/dL (NEGATIVE); UR CLARITY CLEAR (CLEAR); UR COLOR STRAW (YELLOW); UR GLUCOSE (Dip) 1+ mg/dL (NEGATIVE); UR KETONES (Dip) NEGATIVE (NEGATIVE); UR LEUKOCYTE ESTERASE (Dip) NEGATIVE Leu/ul (NEGATIVE); UR NITRITE (Dip) NEGATIVE (NEGATIVE); UR RBC 1 /HPF (0-5); UR SPECIFIC GRAVITY (Dip) 1.012 (1.003-1.030); UR SQUAMOUS EPITHELIAL CELL FEW /HPF (FEW); UR TOTAL PROTEIN (Dip) NEGATIVE (NEGATIVE); UR UROBILINOGEN (Dip) NEGATIVE (NEGATIVE)
[2017-01-04] LABS: TROPONIN-I < 0.012 ng/ml (0.00-0.12)
[2017-01-04 00:45] VITALS: BP 114/81; PULSE 69; RESP 18; TEMP 98.1
== END 2017-01-04 01:12 | disposition home or self-care (01) ==
LOC: E/R 22:14
DX: I48.91 Unspecified atrial fibrillation (principal); I10 Essential (primary) hypertension; I25.10 Atherosclerotic heart disease of native coronary artery without angina pectoris; Z79.82 Long term (current) use of aspirin
CPT/HCPCS: 36415; 71010; 80053; 81001; 83690; 84484; 85025; 96374; J7120; Z7502; Z7610; 93005

== ENCOUNTER 2017-01-17 15:06 | Inpatient (IN) | payer OTHER ==
[~2017-01-17] VITALS: Ht 157.5 cm; Wt 65.0 kg
[~2017-01-17 15:06] MED LIST changes: -NIT4 SL; +NITR0.4T39 SL
[2017-01-17 15:09] VITALS: Ht 157.5 cm; Wt 65.0 kg
[2017-01-17] MEDS ORDERED: SOD CHLORIDE 0.9% 1,000 ML IV STA (15:25)
[2017-01-17] MEDS ORDERED: DILTIAZEM 25 MG INJ IV ONE (15:30)
[2017-01-17 16:00] LABS: BASOPHILS % 0.3 % (0.0-2.0); EOSINOPHILS # 0.1 10^3/ul (0.0-0.5); HEMATOCRIT 40.7 % (37.0-47.0); HEMOGLOBIN 14.1 g/dl (12.0-16.0); LYMPHOCYTES # 2.2 10^3/ul (0.8-2.9); LYMPHOCYTES % 36.6 % (15.0-51.0); MEAN CORPUSCULAR HEMOGLOBIN 29.7 pg (29.0-33.0); MEAN CORPUSCULAR HGB CONC 34.6 g/dl (32.0-37.0); MEAN CORPUSCULAR VOLUME 85.9 fl (82.0-101.0); MEAN PLATELET VOLUME 9.9 fl (7.4-10.4); MONOCYTE # 0.3 10^3/ul (0.3-0.9); MONOCYTES % 5.5 % (0.0-11.0); NEUTROPHIL # 3.3 10^3/ul (1.6-7.5); NEUTROPHILS % 56.4 % (39.0-77.0); PLATELET COUNT 274 10^3/UL (140-415); RED BLOOD COUNT 4.74 10^6/ul (4.20-5.40); RED CELL DISTRIBUTION WIDTH 12.3 % (11.5-14.5); WHITE BLOOD COUNT 5.9 10^3/ul (4.8-10.8)
--- NOTE | 2017-01-17 16:08 | ERD ---
ER Documentation Chief Complaint Chief Complaint palpitaions with sob x 1 hour HPI 56-year-old woman brought in by daughter again for palpitations, shortness of breath, chest discomfort. Patient was recently diagnosed with atrial fibrillation by me here in this emergency department about 2 weeks ago. She was treated in the ED at that time and after discussion with her and her daughter who was at the bedside and decision was made for outpatient management , she did follow-up with her primary care physician who recommended outpatient cardiology consultation, which she has not obtained yet. Appointment scheduled for the end of this month. Patient denies fevers or chills, no vomiting or diarrhea, no exertional chest pain, no headache or blurry vision. ROS All systems reviewed and are negative except as per history of present illness. Medications Home Meds Active Scripts Atorvastatin* (Atorvastatin*) 40 Mg Tablet, 40 MG PO HS for 28 Days, TAB Prov:VICTORIA MAHER MD 05/01/16 Nitroglycerin* (Nitrostat*) 0.4 Mg Tab.subl, 1 TAB SL Q5M Y for ANGINA for 14 Days Prov:VICTORIA MAHER MD 05/01/16 Reported Medications Verapamil Hcl* (Isoptin*) 40 Mg Tab, 40 MG PO Q6 Y for PALPITATION, TAB 04/29/16 Aspirin* (Aspirin*) 325 Mg Tablet, 325 MG PO DAILY, TAB 04/29/16 Losartan Potassium* (Losartan Potassium*) 50 Mg Tablet, 50 MG PO BID, TAB 04/29/16 Allergies Allergies: Coded Allergies: No Known Allergy (Unverified , 04/29/16) PMhx/Soc CAD, hypertension History of Surgery: Yes Anesthesia Reaction: No Hx Neurological Disorder: No Hx Respiratory Disorders: No Hx Cardiac Disorders: Yes (HTN, palpitations) Hx Psychiatric Problems: No Hx Miscellaneous Medical Probl: Yes (cholesterol) Hx Alcohol Use: No Hx Substance Use: No Hx Tobacco Use: No FmHx Family History: No diabetes Physical Exam Vitals Vital Signs Date Time Temp Pulse Resp B/P Pulse Ox O2 Delivery O2 Flow Rate FiO2 01/17/17 17:15 98.0 89 20 143/98 99 Nasal Cannula 3.0 01/17/17 15:09 98.1 87 18 177/87 98 Physical Exam GENERAL: Well-developed, well-nourished, well-hydrated, in no apparent distress , looks nontoxic in appearance HEENT: Moist mucous membranes, pink conjunctiva, no cervical spine tenderness or step-off deformities, no goiter, no jaundice or icterus, extraocular movements intact without pain. No submandibular induration, and no pharyngeal erythema NEURO: Alert and oriented 3, cranial nerves II through XII intact bilaterally, pupils equal round reactive to light, no focal deficits or facial asymmetry, sensation intact distally Strength 5/5 in upper and lower extremities bilaterally CARDIAC: Tachycardic and irregular, no murmurs rubs or gallops LUNGS: Clear bilaterally no wheezing crackles or stridor ABDOMEN: Soft nontender, no guarding, no rigidity, no rebound, no psoas sign no obturator sign. SKIN: Warm and dry to touch, no abrasions, contusions, or hematomas, no lacerations, no ecchymosis, no target lesions, and without ulcers EXTREMITIES: No clubbing cyanosis or edema, calves are bilaterally symmetrical, no Homans sign, no popliteal cord sign. Distal pulses equal and bilateral PSYCH: Normal affect without agitation or irritability Result Diagram: 01/17/17 1530 01/17/17 1530 Results 24 hrs Laboratory Tests Test 01/17/17 15:30 White Blood Count 5.910^3/ul Red Blood Count 4.7410^6/ul Hemoglobin 14.1g/dl Hematocrit 40.7% Mean Corpuscular Volume 85.9fl Mean Corpuscular Hemoglobin 29.7pg Mean Corpuscular Hemoglobin Concent 34.6g/dl Red Cell Distribution Width 12.3% Platelet Count 14365^3/UL Mean Platelet Volume 9.9fl Neutrophils % 56.4% Lymphocytes % 36.6% Monocytes % 5.5% Eosinophils % 1.0% Basophils % 0.3% Nucleated Red Blood Cells % 0.0/100WBC Neutrophils # 3.310^3/ul Lymphocytes # 2.210^3/ul Monocytes # 0.310^3/ul Eosinophils # 0.110^3/ul Basophils # 0.010^3/ul Nucleated Red Blood Cells # 0.010^3/ul Prothrombin Time 11.7Sec Prothrombin Time Ratio 0.9 INR International Normalized Ratio 0.85 Sodium Level 147mmol/L Potassium Level 3.5mmol/L Chloride Level 109mmol/L Carbon Dioxide Level 24mmol/L Anion Gap 18 Blood Urea Nitrogen 13mg/dl Creatinine 0.67mg/dl Glucose Level 243mg/dl Calcium Level 11.1mg/dl Total Bilirubin 0.2mg/dl Direct Bilirubin 0.00mg/dl Indirect Bilirubin 0.2mg/dl Aspartate Amino Transf (AST/SGOT) 29IU/L Alanine Aminotransferase (ALT/SGPT) 35IU/L Alkaline Phosphatase 111IU/L Troponin I < 0.012ng/ml B-Type Natriuretic Peptide 77PG/ML Total Protein 8.3g/dl Albumin 4.5g/dl Globulin 3.80g/dl Albumin/Globulin Ratio 1.18 Lipase 469U/L Current Medications Medications (Trade) Dose Ordered Sig/Argenis Route PRN Reason Start Time Stop Time Status Last Admin Dose Admin Diltiazem HCl 20 mg 20 mg ONCE ONCE IV 01/17/17 15:30 01/17/17 15:31 DC 01/17/17 16:04 Sodium Chloride (NS) 1,000 ml @ 1,000 mls/hr Q1H STAT IV 01/17/17 15:25 01/17/17 16:24 DC 01/17/17 16:04 Procedures/MDM IV line was established patient was placed on global compensation analyst rhythm strip revealed tachycardia at 120 bpm with upright P and T waves. Patient was afebrile Chest X-ray 1V Interpreted by me: Soft Tissue: No acute abnormalities Bones: No acute abnormalities Mediastinum/Cardiac Silhouette/Lungs: No acute abnormalities EKG was performed, read by me revealed atrial fibrillation with rapid ventricular rate at 107 bpm, normal axis, narrow QRS complex, no concerning ST elevations or depressions noted. I administered 1 L of normal saline intravenously, diltiazem 20 mg IV 1 for A. fib with RVR. Pulse and palpitations improved to about 90 bpm. Patient states she feels better although we attempted outpatient management the first time around so we will admit her to telemetry setting for cardiac consultation and treatment for A. fib. CBC and electrolytes are normal, calcium elevated at 11. Liver function tests were normal, lipase elevated at 469, troponin negative, BNP low. Departure Diagnosis: Primary Impression: Atrial fibrillation with RVR Additional Impressions: Palpitations Hypertension Hypertension type: essential hypertension Qualified Code: I10 - Essential hypertension Hypercalcemia Condition: ESTEBAN Bagley MD Jan 17, 2017 16:08
[2017-01-17 16:16] LABS: INR 0.85; PROTIME 11.7 Sec (11.9-14.9); PT RATIO 0.9
[2017-01-17 16:29] LABS: ALANINE AMINOTRANSFERASE 35 IU/L (13-69); ALBUMIN 4.5 g/dl (3.3-4.9); ALBUMIN/GLOBULIN RATIO 1.18; ALKALINE PHOSPHATASE 111 IU/L (42-121); ANION GAP 18 (8-16); ASPARTATE AMINO TRANSFERASE 29 IU/L (15-46); BILIRUBIN,INDIRECT 0.2 mg/dl (0-1.1); BILIRUBIN,TOTAL 0.2 mg/dl (0.2-1.3); BLOOD UREA NITROGEN 13 mg/dl (7-20); CALCIUM 11.1 mg/dl (8.4-10.2); CARBON DIOXIDE 24 mmol/L (21-31); CHLORIDE 109 mmol/L (97-110); CREATININE 0.67 mg/dl (0.44-1.00); GLUCOSE 243 mg/dl (70-220); POTASSIUM 3.5 mmol/L (3.5-5.1); SODIUM 147 mmol/L (135-144); TOTAL PROTEIN 8.3 g/dl (6.1-8.1)
--- NOTE | 2017-01-17 16:29 | RADRPT ---
PROCEDURE: XR Chest. CLINICAL INDICATION: Abdominal pain TECHNIQUE: Single AP portable chest. COMPARISON: 04/29/2016 Chest x-ray FINDINGS: The cardiomediastinal silhouette is within normal limits of size. new The lungs are clear without p leural effusion or focal consolidation. No pneumothorax. The osseous structures and soft tissues are unremarkable. IMPRESSION: 1. No evidence for active cardiopulmonary disease. RPTAT:AAJJ Physician Tri Date Time Electronically viewed and signed by Harmeet Dale Physician on 01/17/2017 16:29 MARCELLO/
[2017-01-17 16:37] LABS: B-TYPE NATRIURETIC PEPTIDE 77 PG/ML (0-125)
[2017-01-17 16:43] LABS: TROPONIN-I < 0.012 ng/ml (0.00-0.12)
[2017-01-17 17:15] VITALS: TEMP 98
[2017-01-17] MEDS ORDERED: HYDROCODONE/APAP (5/325) TAB PO PRN (19:30)
[2017-01-17] MEDS ORDERED: ZOLPIDEM 5 MG TAB PO PRN (19:30)
[2017-01-17] MEDS ORDERED: MAGNESIUM HYDROXIDE 30ML CUP PO PRN (19:30)
[2017-01-17] MEDS ORDERED: NACL 0.9% 3 ML SYG IV SCH (19:30)
[2017-01-17] MEDS ORDERED: DOCUSATE SODIUM 100 MG CAP PO PRN (19:30)
[2017-01-17] MEDS ORDERED: ONDANSETRON 4 MG INJ IV PRN (19:30)
[2017-01-17] MEDS ORDERED: LORAZEPAM 0.5 MG TAB PO PRN (19:30)
[2017-01-17] MEDS: METOPROLOL 25 MG TAB PO SCH ×2 (19:30→21:00)
[2017-01-17] MEDS ORDERED: ACETAMINOPHEN 325 MG TAB PO PRN (19:30)
[2017-01-17] MEDS ORDERED: GLUCOSE GEL 15 GRAM TUBE PO PRN ×2 (20:00)
[2017-01-17] MEDS ORDERED: GLUCAGON 1 MG INJ IM PRN (20:00)
[2017-01-17] MEDS ORDERED: DEXTROSE 50% 50 ML SYRINGE IV PRN ×2 (20:00)
[2017-01-17] MEDS ORDERED: GLUCOSE GEL 15 GRAM TUBE BUCCAL PRN (20:00)
--- NOTE | 2017-01-17 20:11 | HP ---
Date/Time of Note Date/Time of Note DATE: 01/17/17 TIME: 19:50 Assessment/Plan VTE Prophylaxis VTE Prophylaxis Intervention: ambulation, anti-embolic stocking, heparin Lines/Catheters IV Catheter Type (from Nrs): Peripheral IV Urinary Cath still in place: No Assessment/Plan Problems: (1) Atrial fibrillation with RVR Status: Acute Comment: A fib with RVR terminated by IV Cardizem. Lopressor given to control HR and BP at this time. aspirin given If her HbA1C >5.5 ,she will be diagnosed with new onset type 2 DM ,and then she may need anticoagulant agent. Serial troponin repeated. Admitted to Telemetry to detect any further arrhythmia (2) Palpitations Status: Resolved Comment: Due to paroxysmal atrial fib with RVR. Dehydration may be precipitating factor. IV hydration given. (3) Chest pain Status: Acute Comment: It was due to rapid A fib with RVR Control HR by Lopressor Qualifiers: Chest pain type: precordial pain Qualified Code: R07.2 - Precordial pain (4) HTN (hypertension) Status: Chronic Comment: Losartan resumed. Lopressor added on to control blood pressure Qualifiers: Hypertension type: essential hypertension Qualified Code: I10 - Essential hypertension (5) DM type 2 with diabetic dyslipidemia Status: Acute Comment: HbA1C ,TSH and lipid panel checked Lipitor resumed to keep LDL <100 or even <70 if she is diabetic. (6) Dehydration with hypernatremia Status: Acute Comment: IV fluid given CMP repeated in A.M. encourage oral fluid Blood sugar controlled by insulin sliding scale. (7) Dizziness and giddiness Status: Acute Comment: It is relate to dehydration. See management as mentioned as above. US of carotid study ordered in A.M. Cont'd Hospitalization Reason: IV fluid ,Telemetry monitorring , serial troponin and US of carotids HPI/ROS Admit Date/Time Admit Date/Time 01/17/2017 ROS This is a 56 years old [place] lady with significant medical illness of paroxysmal Atrial fibrillation on verapamil as needed.hypertension , hyperlipidemia and newly diagnosed type 2 DM who was admitted here at this time due to chest pressure and atrial fibrillation with RVR ,terminated with IV Cardizem at ER today. Now she was asymptomatic. Today ,she was standing at work and then she felt palpitation and chest pressure. It was brought on abruptly and sustained. She felt dizzy but no fall nor head injury. She is hungry and thirsty at that time. No abdominal pain or N/ V. No diarrhea. No N/V nor short of breath related to chest pressure and heart palpitation. She was admitted here in April 2016 and negative serial troponin,EF of 65% without valvular abnormality. Stress test was negative at that time too. She has hot discharge with aspirin,lipiotr,losartan and Verapamil 40 mg used as needed for palpitation. Today,she was brought here and HR was controlled by IV cardizem Constitutional: fatigue, poor po, No chills, No diaphoresis, No disoriented, No febrile, No improved, No nausea , No no complaints, No other, No weight change Eyes: No discharge, No no complaints, No other, No pain, No redness, No visual change ENT: No bleeding, No congestion, No discharge, No dysphagia, No no complaints, No other, No pain, No sore throat Respiratory: shortness of breath Cardiovascular: chest pain, lightheadedness, palpitations, No edema, No no complaints, No orthopenea, No other, No paroxysmal nocturnal dyspnea Gastrointestinal: No blood, No constipation, No decreased appetite, No diarrhea , No flatus, No nausea, No no complaints, No other, No pain, No passing stool, No vomiting Genitourinary: No bleeding, No discharge, No dysuria, No flank pain, No hematuria, No no complaints, No other Musculoskeletal: No back pain, No bone/joint pain, No neck pain, No no complaints, No other, No restricted range of motion, No swelling Skin: No bruising, No erythema, No laceration, No no complaints, No other, No pruritis, No rash, No skin lesions Neurologic: No confusion, No dizziness, No focal-weakness, No headache, No no complaints, No other, No seizure, No syncope Endocrine: No dry skin, No no complaints, No other, No polydypsia, No polyuria , No temp intolerance, No weight change Lymphatic: No adenopathy, No lymphadema, No no complaints, No other, No tender nodes Psychological: No anxiety, No confusion, No depression, No nl mood/affect, No no complaints, No other, No suicidal Immunologic: No immunodeficiency, No no complaints, No other, No pruritis, No rhinitis, No urticaria PMH/Family/Social Past Medical History Medical History: high cholesterol, hypertension, other (paroxysmal atrial fibrillation) Past Surgical History Past Surgical Hx: no surgical history Family History Significant Family History: no pertinent family hx Social History Alcohol Use: none Smoking Status: Never smoker Drug Use: none Exam/Review of Systems Vital Signs Vitals Vital Signs Date Time Temp Pulse Resp B/P Pulse Ox O2 Delivery O2 Flow Rate FiO2 01/17/17 17:15 98.0 89 20 143/98 99 Nasal Cannula 3.0 Exam Constitutional: oriented, well developed, No alert, No distress, No frail, No non-verbal, No other Psych: anxiety, nl mood/affect, no complaints, No confusion, No depression, No other, No suicidal Head: atraumatic, normocephalic Eyes: EOMI, nl conjunctiva, nl lids, No PERRL, No fundi, disc, No icteric, No nl sclera, No other ENMT: nl external ears & nose, nl lips & teeth, other (dry mouth and oral mucosa) Neck: non-tender, supple, No bruits, No jvd, No masses, No nuchal rigidity, No other, No thyromegaly Respiratory: clear to auscultation, normal air movement, No congested cough, No crackles/rales, No diminished breath sounds, No intercostal retraction, No labored breathing, No other, No respirations, No tactile fremitus, No wheezing Cardiovascular: nl pulses, regular rate and rhythm, No S3, No S4, No bruits, No diastolic murmur, No edema, No gallop, No irregular rhythm, No jugular venous distention (JVD), No murmurs/extra sounds, No other, No rub, No systolic murmur Gastrointestinal: nl liver, spleen, non-tender, soft, No ascites, No bowel sounds, No distended, No firm, No hepatomegaly, No mass , No other, No rebound or guarding, No splenomegaly, No surgical scars, No tender Musculoskeletal: nl extremities to inspection, nl gait and stance, No joint tenderness, No muscle tone, No muscle weakness, No other, No range of motion, No spine non-tender, No swelling Extremities: normal pulses Neurological: SPARE HAND CARDING II-XII intact, nl mental status, nl speech, nl strength Lymph: No enlarged, No nl lymph nodes, No nontender, No other Labs Result Diagram: 01/17/17 1530 01/17/17 1530 Medications Medications Current Medications Aspirin (Aspirin) 325 mg DAILY PO ; Start 01/18/17 at 09:00; Status UNV Atorvastatin Calcium (Lipitor) 40 mg HS PO ; Start 01/17/17 at 21:00; Status UNV Losartan Potassium 50 mg 50 mg BID PO ; Start 01/17/17 at 21:00; Status UNV Sodium Chloride (1/2 NS) 1,000 ml @ 80 mls/hr [id number] IV ; Start 01/17/17 at 19 :17; Status UNV Lorazepam (Ativan) 0.5 mg Q8H PRN PO ANXIETY; Start 01/17/17 at 19:30; Status UNV Ondansetron HCl (Zofran Inj) 4 mg Q6H PRN IV NAUSEA AND/OR VOMITING; Start 01/17/17 at 19:30; Status UNV Acetaminophen (Tylenol Tab) 650 mg Q6H PRN PO PAIN LEVEL 1-3 OR FEVER; Start 01/17/17 at 19:30; Status UNV Acetaminophen/ Hydrocodone Bitart ([place] (5/325)) 1 tab Q6H PRN PO PAIN LEVEL 4 -6; Start 01/17/17 at 19:30; Status UNV Zolpidem Tartrate (Ambien) 5 mg QHS PRN PO INSOMNIA; Start 01/17/17 at 19:30; Status UNV Docusate Sodium (Colace) 100 mg Q12H PRN PO CONSTIPATION; Start 01/17/17 at 19: 30; Status UNV Magnesium Hydroxide (Milk Of Mag) 30 ml DAILY PRN PO CONSTIPATION; Start at 19:30; Status UNV Famotidine (Pepcid) 20 mg Q12 PO ; Start 01/17/17 at 21:00; Status UNV Heparin Sodium (Porcine) (Heparin (5000 Units/0.5 ml)) 5,000 unit Q12 SC ; Start 01/17/17 at 21:00; Status UNV Metoprolol Tartrate (Lopressor) 25 mg BID PO ; Start 01/17/17 at 19:30; Status UNV Miscellaneous Information (* Miscellaneous Pharmacy Order) Discontinue current oral sulfonylur... ONCE ONCE XX ; Start 01/17/17 at 19:30; Stop 01/17/17 at 19: 31; Status UNV Diagnostic Test (Pha) (Accu-Chek) 1 XX ; Start 01/18/17 at 02:00; Status UNV Miscellaneous Information (* Miscellaneous Pharmacy Order) HYPOGLYCEMIA PROTOCOL w... ONCE ONCE XX ; Start 01/17/17 at 19:30; Stop 01/17/17 at 19:31; Status UNV Miscellaneous Information (* Miscellaneous Pharmacy Order) Discontinue all previ... ONCE ONCE XX ; Start 01/17/17 at 19:30; Stop 01/17/17 at 19:31; Status UNV Procedures Procedures CXR showed normal cardiac size. No pneumonia or acute pulmonary edema. EKG on arrival showed rapid atrial fibrillation with RVR and after IV Cardizem given EKG showed normal sinus rhythm with HR of 76/min . No new ST-T change. YAMILET RAMOS MD Jan 17, 2017 20:00
[2017-01-17] MEDS ORDERED: ATORVASTATIN 40 MG TAB PO SCH (21:00)
[2017-01-17] MEDS: LOSARTAN 50 MG TAB PO SCH (21:00)
[2017-01-17 22:17] LABS: CREATINE KINASE 25 IU/L (23-200)
[2017-01-17 22:18] LABS: CHOL/HDL RATIO 4.2 RATIO
[2017-01-17 22:30] LABS: CK-MB 0.26 ng/ml (0.0-2.4)
[2017-01-17 22:35] LABS: TROPONIN-I < 0.012 ng/ml (0.00-0.12)
[2017-01-17] MEDS: FAMOTIDINE 20 MG TAB PO SCH (22:48)
[2017-01-17] MEDS: HEPARIN 5,000 UNIT/0.5 ML VIAL SC SCH (22:49)
[2017-01-18] VITALS (7 sets, daily range): BP systolic 124–134; BP diastolic 73–85; PULSE 56–64; RESP 16–18
[2017-01-18] MEDS: SOD CHLORIDE 0.45% 1,000 ML IV SCH ×2 (01:30→08:38)
[2017-01-18] MEDS ORDERED: ACCU-CHEK XX SCH (02:00)
[2017-01-18 02:36] LABS: CREATINE KINASE 23 IU/L (23-200)
[2017-01-18 02:49] LABS: CK-MB 0.27 ng/ml (0.0-2.4)
[2017-01-18 02:55] LABS: TROPONIN-I < 0.012 ng/ml (0.00-0.12)
[2017-01-18 06:18] LABS: BASOPHILS % 0.5 % (0.0-2.0); EOSINOPHILS # 0.1 10^3/ul (0.0-0.5); EOSINOPHILS % 1.5 % (0.0-7.0); HEMATOCRIT 38.4 % (37.0-47.0); HEMOGLOBIN 13.2 g/dl (12.0-16.0); LYMPHOCYTES # 2.4 10^3/ul (0.8-2.9); LYMPHOCYTES % 44.7 % (15.0-51.0); MEAN CORPUSCULAR HEMOGLOBIN 30.1 pg (29.0-33.0); MEAN CORPUSCULAR HGB CONC 34.4 g/dl (32.0-37.0); MEAN CORPUSCULAR VOLUME 87.7 fl (82.0-101.0); MEAN PLATELET VOLUME 9.7 fl (7.4-10.4); MONOCYTE # 0.4 10^3/ul (0.3-0.9); MONOCYTES % 7.7 % (0.0-11.0); NEUTROPHIL # 2.5 10^3/ul (1.6-7.5); NEUTROPHILS % 45.4 % (39.0-77.0); PLATELET COUNT 243 10^3/UL (140-415); RED BLOOD COUNT 4.38 10^6/ul (4.20-5.40); RED CELL DISTRIBUTION WIDTH 12.4 % (11.5-14.5); WHITE BLOOD COUNT 5.5 10^3/ul (4.8-10.8)
[2017-01-18] MEDS: FAMOTIDINE 20 MG TAB PO SCH (08:40)
[2017-01-18] MEDS: LOSARTAN 50 MG TAB PO SCH (08:41)
[2017-01-18] MEDS: METOPROLOL 25 MG TAB PO SCH (08:42)
[2017-01-18] MEDS: HEPARIN 5,000 UNIT/0.5 ML VIAL SC SCH (08:44)
[2017-01-18] MEDS ORDERED: ASPIRIN 325 MG TAB PO SCH (09:00)
--- NOTE | 2017-01-18 10:00 | RADRPT ---
PROCEDURE: Carotid ultrasound CLINICAL INDICATION: Carotid stenosis, carotid bruits TECHNIQUE: Chi scale, color doppler, spectral doppler ultrasound of the bilateral carotid and cesar tebral arteries. This study indirectly references the measurement of the distal ICA diameter as the denominator for s tenosis measurement. Validated velocity measurements with angiographic measurements, velocity criter ia are extrapolated from diameter data as defined by: *Cartoid artery stenosis: chi-scale and Doppl er US diagnosis. Society of Radiologists in Ultrasound Consensus Conference. Radiology 2003; 229: 34 0-346. SRU Consensus Conference Criteria for the Diagnosis of Carotid Artery Stenosis* Degree of Stenosis, % ICA PSV, cm/sec Plaque Estimate, % ICA/CCA PSV Ratio Normal <125 None <2.0 <50 <125 <50 <2.0 50 69 125-230 >50 2.0-4.0 >70 but less than near occlusion >230 >50 <4.0 Near occlusion High, low, or undetectable Visible Variable Total occlusion Undetectable Visible, no detectable lumen Not applicable COMPARISON: No prior studies are available for comparison. FINDINGS: Location Right CCA51 - 56 cm/sec Prox ICA 50 cm/sec Mid ICA78 cm/sec Dist ICA57 cm/sec ECA84 cm/sec ICA/CCA1.4 Left CCA58 - 71 cm/sec Prox ICA 66 cm/sec Mid ICA55 cm/sec Dist ICA62 cm/sec ECA57 cm/sec ICA/CCA1.1 Plaque burden: No significant plaque is seen. Antegrade flow is seen within the vertebral arteries bilaterally. IMPRESSION: No evidence of a hemodynamically significant carotid stenosis. RPTAT: AADD .Micky Chávez MD, MD Date Time Electronically viewed and signed by .Micky Chávez MD, MD on 01/18/2017 10:00 .B/
[2017-01-18] MEDS: INSULIN ASPART [NOVOLOG] 3 ML PEN SC SCH ×2 (10:08→11:50)
--- NOTE | 2017-01-18 10:59 | PDOCDIS ---
Discharge Instructions DIAGNOSIS Discharge Diagnosis 1.Rapid atrial fibrillation with RVR due to hyperglycemia and dehydration 2.Type 2 diabetic mellitus with dyslipidemia 3.Hypertension CONDITION Patient Condition: Good HOME CARE INSTRUCTIONS: Diet Instructions: Special Diet: 1800 CHARMAINE diabetic dietYour diet recommendation is: daily walking more than 30 mins and weight loss ACTIVITY: Activity Restrictions: No Restrictions Bathing Restrictions: Shower FOLLOW UP/APPOINTMENTS Follow-up Plan Follow with Dr. Mccloud in 1 week Follow up with her primary care physician in 1 week Outpatient diabetic education in 1 week SCHOOL/WORK RELEASE May return to School/Work with: No Restrictions YAMILET RAMOS MD Jan 18, 2017 10:59
[2017-01-18] MEDS ORDERED: LOSA50TA2 PO (11:03)
[2017-01-18] MEDS ORDERED: METF-731 PO (11:03)
[2017-01-18] MEDS ORDERED: ASPI-716 PO (11:03)
[2017-01-18] MEDS ORDERED: METO-448 PO (11:03)
--- NOTE | 2017-01-18 11:09 | DS ---
Date/Time of Note Date/Time of Note DATE: 01/18/17 TIME: 11:07 Discharge Summary Admission/Discharge Info Admit Date/Time Jan 17, 2017 at 18:39 Discharge Date/Time 01/18/2017 Discharge Diagnosis 1.Rapid atrial fibrillation with RVR due to hyperglycemia and dehydration 2.Type 2 diabetic mellitus with dyslipidemia 3.Hypertension Patient Condition: Good Consults None. Procedures None. Hx of Present Illness This is a 56 years old [facility] [place] lady with significant medical illness of paroxysmal Atrial fibrillation on verapamil as needed.hypertension , hyperlipidemia and newly diagnosed type 2 DM who was admitted here at this time due to chest pressure and atrial fibrillation with RVR ,terminated with IV Cardizem at ER today. Now she was asymptomatic. Today ,she was standing at work and then she felt palpitation and chest pressure. It was brought on abruptly and sustained. She felt dizzy but no fall nor head injury. She is hungry and thirsty at that time. No abdominal pain or N/ V. No diarrhea. No N/V nor short of breath related to chest pressure and heart palpitation. She was admitted here in April 2016 and negative serial troponin,EF of 65% without valvular abnormality. Stress test was negative at that time too. She has hot discharge with aspirin,lipiotr,losartan and Verapamil 40 mg used as needed for palpitation. Today,she was brought here and HR was controlled by IV cardizem Hospital Course While she was here, her heart rates were controlled by Lopressor. Precipitating factor was severe dehydration due to uncontrolled hyperglycemia /type 2 DM.. Normal troponin level. She is ion sinus rhythm now. Echocardiogram was done this year showed Normal EF without any valvular abnormality. Stress test was don this year showed no reversible myocardial ischemia. Carotid ultrasound showed no significant carotid arterial occlusion. She is medically stable to be discharged home today 1800 diabetic diet,low salt ,low cholesterol diet. Prognosis : good. Vital Signs Date Time Temp Pulse Resp B/P Pulse Ox O2 Delivery O2 Flow Rate FiO2 01/18/17 08:42 61 01/18/17 07:59 97.8 18 129/81 97 01/18/17 05:20 Room Air 01/17/17 17:15 3.0 Const: She is alert and oriented to time,place and person. Head: Normocephalic and atraumatic scalp. Eyes: Normal Conjunctiva ENT: Normal External Ears, Nose and Mouth. Neck: Full range of motion. No meningismus. Resp: [Clear to auscultation bilaterally] Cardio: Regular rate and rhythm, no murmurs Abd: Soft, non tender, non distended. Normal bowel sounds] Skin: No petechiae or rashes. Back: No midline or flank tenderness. Ext: No cyanosis, or edema. Neuro: Awake and alert Psych: Normal Mood and Affect Home Meds Active Scripts Metformin HCl (Metformin HCl ER) 1,000 Mg [id number], 1000 MG PO DAILY for 30 Days, #30 TAB 2 Refills Prov:YAMILET RAMOS MD 01/18/17 Aspirin* (Ecotrin*) 81 Mg Tablet.dr, 81 MG PO DAILY for 30 Days, #30 TAB 2 Refills Prov:YAMILET RAMOS MD 01/18/17 Metoprolol Tartrate* (Lopressor*) 25 Mg Tab, 25 MG PO BID for 30 Days, #60 TAB Prov:YAMILET RAMOS MD 01/18/17 Losartan Potassium* (Cozaar*) 50 Mg Tablet, 50 MG PO BID for 60 Days, TAB Prov:YAMILET RAMOS MD 01/18/17 Atorvastatin* (Atorvastatin*) 40 Mg Tablet, 40 MG PO HS for 28 Days, TAB Prov:VICTORIA MAHER MD 05/01/16 Nitroglycerin* (Nitrostat*) 0.4 Mg Tab.subl, 1 TAB SL Q5M Y for ANGINA for 14 Days Prov:VICTORIA MAHER MD 05/01/16 Reported Medications Verapamil Hcl* (Isoptin*) 40 Mg Tab, 40 MG PO Q6 Y for PALPITATION, TAB 04/29/16 Aspirin* (Aspirin*) 325 Mg Tablet, 325 MG PO DAILY, TAB 04/29/16 Losartan Potassium* (Losartan Potassium*) 50 Mg Tablet, 50 MG PO BID, TAB 04/29/16 Follow-up Plan Follow with Dr. Mccloud in 1 week Follow up with her primary care physician in 1 week Outpatient diabetic education in 1 week Primary Care Provider George Ashford MD Time spent on discharge: > 30 minutes Pending Labs Laboratory Tests Test 01/17/17 15:30 01/17/17 21:20 01/18/17 02:00 01/18/17 05:40 White Blood Count 5.910^3/ul (4.8-10.8) 5.510^3/ul (4.8-10.8) Red Blood Count 4.7410^6/ul (4.20-5.40) 4.3810^6/ul (4.20-5.40) Hemoglobin 14.1g/dl (12.0-16.0) 13.2g/dl (12.0-16.0) Hematocrit 40.7% (37.0-47.0) 38.4% (37.0-47.0) Mean Corpuscular Volume 85.9fl (82.0-101.0) 87.7fl (82.0-101.0) Mean Corpuscular Hemoglobin 29.7pg (29.0-33.0) 30.1pg (29.0-33.0) Mean Corpuscular Hemoglobin Concent 34.6g/dl (32.0-37.0) 34.4g/dl (32.0-37.0) Red Cell Distribution Width 12.3% (11.5-14.5) 12.4% (11.5-14.5) Platelet Count 05213^3/UL (140-415) 82006^3/UL (140-415) Mean Platelet Volume 9.9fl (7.4-10.4) 9.7fl (7.4-10.4) Neutrophils % 56.4% (39.0-77.0) 45.4% (39.0-77.0) Lymphocytes % 36.6% (15.0-51.0) 44.7% (15.0-51.0) Monocytes % 5.5% (0.0-11.0) 7.7% (0.0-11.0) Eosinophils % 1.0% (0.0-7.0) 1.5% (0.0-7.0) Basophils % 0.3% (0.0-2.0) 0.5% (0.0-2.0) Nucleated Red Blood Cells % 0.0/100WBC (0.0-0.0) 0.0/100WBC (0.0-0.0) Neutrophils # 3.310^3/ul (1.6-7.5) 2.510^3/ul (1.6-7.5) Lymphocytes # 2.210^3/ul (0.8-2.9) 2.410^3/ul (0.8-2.9) Monocytes # 0.310^3/ul (0.3-0.9) 0.410^3/ul (0.3-0.9) Eosinophils # 0.110^3/ul (0.0-0.5) 0.110^3/ul (0.0-0.5) Basophils # 0.010^3/ul (0.0-0.1) 0.010^3/ul (0.0-0.1) Nucleated Red Blood Cells # 0.010^3/ul (0.0-0.0) 0.010^3/ul (0.0-0.0) Prothrombin Time 11.7Sec (11.9-14.9) Prothrombin Time Ratio 0.9 INR International Normalized Ratio 0.85 Sodium Level 147mmol/L (135-144) Potassium Level 3.5mmol/L (3.5-5.1) Chloride Level 109mmol/L (97-110) Carbon Dioxide Level 24mmol/L (21-31) Anion Gap 18 (8-16) Blood Urea Nitrogen 13mg/dl (7-20) Creatinine 0.67mg/dl (0.44-1.00) Glucose Level 243mg/dl (70-220) Calcium Level 11.1mg/dl (8.4-10.2) Total Bilirubin 0.2mg/dl (0.2-1.3) Direct Bilirubin 0.00mg/dl (0.00-0.20) Indirect Bilirubin 0.2mg/dl (0-1.1) Aspartate Amino Transf (AST/SGOT) 29IU/L (15-46) Alanine Aminotransferase (ALT/SGPT) 35IU/L (13-69) Alkaline Phosphatase 111IU/L (42-121) Troponin I < 0.012ng/ml (0.00-0.12) < 0.012ng/ml (0.00-0.12) < 0.012ng/ml (0.00-0.12) B-Type Natriuretic Peptide 77PG/ML (0-125) Total Protein 8.3g/dl (6.1-8.1) Albumin 4.5g/dl (3.3-4.9) Globulin 3.80g/dl (1.3-3.2) Albumin/Globulin Ratio 1.18 Lipase 469U/L (23-300) Hemoglobin A1c 6.4% (0-5.9) Creatine Kinase 25IU/L (23-200) 23IU/L (23-200) Creatine Kinase Index 1.0 1.2 Creatinine Kinase MB (Mass) 0.26ng/ml (0.0-2.4) 0.27ng/ml (0.0-2.4) Triglycerides Level 142mg/dl (0-149) Cholesterol Level 186mg/dl (100-200) LDL Cholesterol, Calculated 114mg/dl HDL Cholesterol 44mg/dl (37-92) Cholesterol/HDL Ratio 4.2RATIO Thyroid Stimulating Hormone (TSH) 3.360MIU/L (0.465-4.680) Test 01/18/17 08:31 Bedside Glucose 111mg/dL (70-220) Copies To: CC: Olvin Mccloud NARUCHON MD Jan 18, 2017 11:09
[2017-01-18] MEDS ORDERED: VER40 PO (14:25)
--- NOTE | 2017-01-18 19:30 | RADRPT ---
Echocardiogram Report Patient Name: CARLOS PHOENIX Gender: Female Date: 1960 Study Date: 18-Jan-2017 Mechanic General Operational Test: ANNA Location: E Ref. Physician: YAMILET RAMOS Quality: Adequate Procedures: Transthoracic echocardiogram with complete 2D, M-Mode, and doppler examination. Indications: Atrial Fibrillation. Shortness of breath. 2D/M Mode Doppler Measurement Value Normal Ranges Measurement Value Normal Ranges AoR Diam MM 3.3 cm AV Peak Jr 1.3 m/sec ACS MM 1.9 cm AV Peak PG 6.9 mmHg LVIDd 2D 4.1 3.5 - 5.6 cm LVOT Peak Jr 0.8 m/sec LVIDs 2D 2.6 2.1 - 4.1 cm LVOT Peak PG 2.7 mmHg LVPWd 2D 1.1 0.6 - 1.1 cm MV E Peak Jr 0.8 m/sec IVSd 2D 1.1 0.6 - 1.1 cm MV A Peak Jr 0.9 m/sec EDV 2D 72.8 cm3 MV E/A 0.9 ESV 2D 16.8 cm3 MV Decel Time 179 msec LA Dimen 2D 3.0 2.3 - 4.0 cm MV Decel [place] 4 MV E/A 0.9 TR Peak Jr 2.7 m/sec TR Peak PG 28.9 mmHg PV Peak Jr 0.8 m/sec PV Peak PG 2.0 mmHg RVSP 31.9 mmHg Findings Left Ventricle: Normal left ventricular systolic function. Normal left ventricular cavity size. Normal left ventricular wall thickness. Ejection fraction is visually estimated at 60 %. Tissue Doppler/Mitral Doppler indices are consistent with impaired relaxation (Stage I diastolic dysfunction). Right Ventricle: Normal right ventricular size. Normal right ventricular systolic function. Left Atrium: The left atrium is normal in size. Right Atrium: The right atrium is normal in size. Mitral Valve: Normal appearance and function of the mitral valve with trace physiologic regurgitation. Aortic Valve: Normal appearance of the aortic valve. No significant aortic stenosis or insufficiency. Tricuspid Valve: Normal appearance of the tricuspid valve. Estimated peak PA systolic pressure 32 mmHg. There is mild tricuspid regurgitation. Pulmonic Valve: Normal pulmonic valve appearance. There is trace pulmonic regurgitation. Pericardium: Normal pericardium with no significant pericardial effusion. Aorta: Normal aortic root. IVC: Normal size and normal respiratory collapse consistent with normal right atrial pressure. Pulmonary Artery: Normal pulmonary artery size. Conclusions Normal left ventricular systolic function. Normal left ventricular cavity size. Normal left ventricular wall thickness. Ejection fraction is visually estimated at 60 %. Tissue Doppler/Mitral Doppler indices are consistent with impaired relaxation (Stage I diastolic dysfunction). Normal right ventricular size. Normal right ventricular systolic function. The left atrium is normal in size. The right atrium is normal in size. Estimated peak PA systolic pressure 32 mmHg. There is mild tricuspid regurgitation. No significant valvular stenosis or regurgitation seen of remaining visualized valves. Normal pericardium with no significant pericardial effusion. Electronically Signed By: Olvin Mccloud 18-Jan-2017 19:29:02 -0800 Patient Name: CARLOS PHOENIX Study Date: 18-Jan-[id number]
== END 2017-01-18 15:20 | disposition home or self-care (01) | DRG 310 ==
LOC: E/R 15:06 → TEL 18:39
PROVIDERS: ADMIT Hospitalist; ATTEND Hospitalist
DX: I48.91 Unspecified atrial fibrillation (principal); E11.65 Type 2 diabetes mellitus with hyperglycemia; I10 Essential (primary) hypertension; E78.5 Hyperlipidemia, unspecified; E86.0 Dehydration; R00.2 Palpitations; R42 Dizziness and giddiness
CPT/HCPCS: 36415; 71010; 80053; 80061; 82550; 82553; 82962; 83036; 83690; 83880; 84443; 84484; 85025; 85610; 93005; 93306; 93880; 96372; 96374; J1644; J1815; J7030

== ENCOUNTER 2017-06-06 13:47 | Inpatient (IN) | END 2017-06-07 18:30 | disposition home or self-care (01) | DRG 149 ==